=== PATIENT | male | born 1975 | race Caucasian/White ===

== ENCOUNTER → 2018-02-14 | Outpatient (CLI) | payer OTHER ==
[~2018-02-14] MED LIST: CIPRO500 MG PO; HYDROCODONE-AP1 EAC6 PO; MIRALAX17 GM PO
[2018-02-14 07:07] LABS: ABSOLUTE BASOPHILS 0.1 thou/uL (0.0-0.2); ABSOLUTE EOSINOPHILS 0.4 thou/uL (0.0-0.7); ABSOLUTE LYMPHOCYTES 2.1 thou/uL (0.8-5.3); ABSOLUTE MONOCYTES 0.5 thou/uL (0.0-1.2); ABSOLUTE NEUTROPHILS 2.7 thou/uL (1.6-8.1); BASOPHILS 1.2 %; EOSINOPHILS 7.3 %; HEMATOCRIT 45.5 % (42.0-52.0); HEMOGLOBIN 15.4 gm/dL (14.0-18.0); LYMPHOCYTES 36.4 %; MCH 31.4 pg (26.0-34.0); MCV 92.3 fL (80.0-100.0); MONOCYTES 9.1 %; NUCLEATED RBCS 0 /100WBC; PLATELET COUNT* 282 thou/uL (150-400); RBC 4.93 mil/uL (4.50-6.00); RDW-CV 12.6 % (10.5-14.5); WBC 5.8 thou/uL (4.0-11.0)
[2018-02-14 07:39] LABS: ALBUMIN 3.8 g/dL (3.4-5.0); CALCIUM 9.8 mg/dL (8.5-10.1); CREATININE 0.9 mg/dL (0.6-1.3); TOTAL BILIRUBIN 0.5 mg/dL (<0.1-1.0); TOTAL PROTEIN 7.5 g/dL (6.4-8.2)
[2018-02-14 21:10] LABS: GLYCOHEMOGLOBIN (HGB A1C) 5.6 % (4.8-5.6)
== END ==
LOC: M.LAB 06:42
PROVIDERS: General Practice
DX: I10 Essential (primary) hypertension (principal); E55.9 Vitamin D deficiency, unspecified; E78.2 Mixed hyperlipidemia; K21.9 Gastro-esophageal reflux disease without esophagitis; M54.9 Dorsalgia, unspecified; R73.09 Other abnormal glucose; R35.1 Nocturia

== ENCOUNTER → 2018-09-03 | Outpatient (CLI) | payer OTHER ==
--- NOTE | 2018-09-07 23:06 | SLEEP ---
[address] [address] SLEEP STUDY REPORT Name: AILYN MAYS Room: [facility]#: [id number] Admission: 09/03/18 Attend Phys: Jose Carlos Owens, Discharge: Date of : 79 Report #: [id number] THIS REPORT FOR: //name// CC: Jose Carlos Owens DO This study has been reviewed in its entirety by a board certified sleep specialist DATE OF SERVICE: 09/03/2018 ATTENDING PHYSICIAN: Jose Carlos Owens DO The patient is 43 years old, weighs 335 pounds and is 66 inches tall with a BMI of 54.1. The patient's Lenore score was 2. The patient underwent a split night study performed at [facility]. During the night study, the patient spent 423 minutes in bed and slept for 375 minutes with a sleep efficiency of 88.6%. Sleep latency was 7.7 minutes with a REM latency of 75.7 minutes. Overall, sleep architecture showed normal stage 1 sleep, reduced stage 2 sleep, increased N3 sleep, which was 33% of the total sleep time and normal REM sleep, which was 28% of total sleep time. During the initial diagnostic portion of the study, the patient slept for 46.5 minutes. During that time, the patient had 14 obstructive apneas, no mixed or central apneas and 85 hypopneas. The patient's apnea hypopnea index was 127.7 per hour. REM sleep was not seen during the diagnostic portion of the study. The patient's supine index was 108.7 per hour. EKG monitoring revealed an average heart rate of 76 beats per minute with a maximum of 96 beats per minute during sleep. No sustained arrhythmias were observed. PLMS were seen at an index of 60 per hour and 10 per hour caused EEG arousals. Review of nocturnal oximetry study revealed an average oxygen saturation of 88% with the lowest of 66%. 22 minutes were spent in oxygen saturation of less than 88%. The patient met the criteria for CPAP initiation. It was started at 9 cm water and titrated up to 18 cm water. At the final pressure, the patient slept for 99.1 minutes. The patient had supine as well as REM sleep. The patient's AHI was reduced to 4.2 per hour and oxygen saturations remained above 89%. IMPRESSION: 1. Severe sleep apnea-hypopnea syndrome at an AHI of 127.7 per [place] [address] SLEEP STUDY REPORT Name: AILYN MAYS Room: [facility]#: [id number] Admission: 09/03/18 Attend Phys: Jose Carlos Owens, Discharge: Date of : 79 Report #: [id number] 2. Nocturnal hypoxia secondary to obstructive sleep apnea, but resolved with CPAP. 3. Severe PLMS which did significantly improve while the patient was on CPAP.This does not need to be treated unless patient has symptoms of restless legs during. RECOMMENDATIONS: 1. CPAP at 18 cm water completely eliminated the patient's sleep apnea and should be used on a nightly basis. 2. Follow up in 4-6 weeks to assess compliance with CPAP and to document clinical improvement. 3. Weight loss is strongly advised. 4. Avoid SOOT BLOWER depressants. 5. Cautioned regarding driving until symptoms of sleep apnea resolved with the use of CPAP. <ELECTRONICALLY SIGNED> By: Haroldo Montes MD 09/07/18 [id number] Montes MD /nt
== END ==
LOC: M.SLEEPLAB 19:50
DX: G47.33 Obstructive sleep apnea (adult) (pediatric) (principal); R09.02 Hypoxemia